=== PATIENT | female | born 1955 | race African-American/Black ===

== ENCOUNTER 2021-06-08 13:52 | Emergency (ER) | payer MEDICARE, SELFPAY ==
[2021-06-08] VITALS (7 sets, daily range): BP systolic 143–188; BP diastolic 73–94; PULSE 75–105; RESP 16–22; O2SAT 97–100; BMI 31.6
--- NOTE | 2021-06-08 14:25 | ECG_ITS ---
[facility] Test Date: 2021-06-08 Pat Name: ERLIN HOLLIDAY Department: Room: Gender: Female [employer]: : 1955 Requested By: Denis Gonzalez Order Number: [id number] Francisco MD: Monica Yi M.D. Measurements Intervals [place] Rate: 80 P: 42 NC: 150 QRS: -26 QRSD: 94 T: -32 QT: 372 QTc: 431 Interpretive Statements SINUS RHYTHM POSSIBLE LEFT ATRIAL ENLARGEMENT [-0.1mV P-WAVE IN V1/V2] POSSIBLE LEFT VENTRICULAR HYPERTROPHY [VOLTAGE CRITERIA PLUS LAE OR QRS WIDENING] POSSIBLE SEPTAL MYOCARDIAL INFARCTION , OF INDETERMINATE AGE [30 ms Q WAVE IN V1/V2] No previous ECG available for comparison Heavy baseline artifact, need to repeat Electronically Signed On 06-09-2021 13:58:05 BLADE GRINDER by Monica Yi M.D. [id number]
--- NOTE | 2021-06-08 14:25 | XR_ITS ---
WS: [id number] Exam: XR chest 1V portable [id number] Date/Time of Exam: 06/08/2021 2:28 PM Reason For Exam: syncope No priors. The lungs are fully expanded and clear. Normal cardiomediastinal silhouette and regional bony element s. No pleural effusions. XR/XR chest 1V portable [id number] IMPRESSION: 1. No acute cardiopulmonary finding.
--- NOTE | 2021-06-08 14:25 | CT_ITS ---
WS: [id number] CT HEAD NONCONTRAST HISTORY: syncope TECHNIQUE: Contiguous axial imaging performed through the brain in 2.5 mm imaging. Bone and soft tiss ue windows. Sagittal and coronal reformats reviewed. All CT scans at [facility] use at least one of these dose optimization techniques: automated exposure control; mA and/or kV adjustment per pa tient size (includes targeted exams where dose is matched to clinical indication); or iterative recon struction. DLP: 936.93 mGy.cm COMPARISON: None available. No acute intracranial hemorrhage, midline shift or mass effect. Mild atrophy and mild chronic microvascular ischemic disease. No sulcal edema. Ventricles: Normal size with no hydrocephalus. Paranasal sinuses: As visualized are clear. Mastoid air cells: Well pneumatized. Calvarium and scalp: Skull is intact with no soft tissue edema or swelling. CT/CT head wo con* [id number] IMPRESSION: 1. No acute intracranial hemorrhage or edema. 2. Mild cerebral atrophy.
--- NOTE | 2021-06-08 14:28 | PC.NURSE ---
Patient placed on continuous bedside cardiac, BP and O2 monitor.
[2021-06-08 14:36] LABS: Basophils % 0.8 %; Hematocrit 33.7 % (37.0-47.0); Hemoglobin 12.1 g/dL (11.5-15.3); Lymphocytes # 0.8 10^3/uL (0.8-4.8); Lymphocytes % 19.1 %; Mean Corpuscular HGB Conc 35.9 g/dL (30.0-36.0); Mean Corpuscular Hemoglobin 37.9 pg (28.0-34.0); Mean Corpuscular Volume 105.6 fl (81-99); Mean Platelet Volume 10.7 fL (7.4-10.4); Monocytes # 0.3 10^3/uL (0.2-0.9); Monocytes % 6.4 %; Neutrophils # 2.84 10^3/uL (1.8-7.7); Neutrophils % 72.4 %; Nucleated Red Blood Cells % 0 %; Platelet Count 142 10^3/cmm (130-400); Red Blood Count 3.19 10^6/uL (4.1-5.3); White Blood Count 3.9 10^3/uL (4.0-10.0)
[2021-06-08 15:00] LABS: D Dimer 8.51 ug/mIFEU (0-0.59)
[2021-06-08] MEDS: sodium chloride 0.9% 500 ML 999 ML IV (15:01)
[2021-06-08 15:04] LABS: Troponin(5th) Baseline 29 ng/L (0-10)
[2021-06-08 15:09] LABS: Blood Urea Nitrogen 15 mg/dL (8-23); Calcium 9.4 mg/dL (8.5-10.5); Carbon Dioxide 26 mmol/L (22-29); Chloride 104 mmol/L (98-107); Creatine Phosphokinase 68 U/L (26-192); Glomerular Filtration Rate 60.1 mL/min (90-130); Glucose 113 mg/dL (65-115); Magnesium 1.6 mg/dL (1.7-2.3); NT Pro B Type Natriuretic Pept 122 pg/mL (0-125); Osmolality Calculated 300 mOsm/kg (285-295); Sodium 144 mmol/L (136-145)
--- NOTE | 2021-06-08 15:13 | W.ED.SYNCOPE ---
HPI - Syncope General: Chief Complaint: Syncope Stated Complaint: SYNCOPE Time Seen by Provider: 06/08/21 13:56 History of Present Illness: MD complaint: loss of consciousness Onset (ago): hour(s) Description of event: post-event confusion (brief) Prodromal symptoms: diaphoresis Context: at rest Associated symptoms: Reports lightheadedness; Deny chest pain, fever(s), headache(s), nausea or short of breath Treatments prior to arrival: none Review of Systems Const: Denies: fever(s) Eyes: Denies: blurry vision Card: Reports: lightheadedness; Denies: chest pain Resp: Denies: dyspnea or productive cough GI: Denies: nausea or vomiting Neuro: Denies: headache(s) Physical Exam Const: COMMON NORMALS: no acute distress, patient oriented x3 and alert GENERAL APPEARANCE: cooperative Chest: COMMONS NORMALS: normal inspection of the chest Resp: COMMON NORMALS: normal respiratory effort, No use of accessory muscles and clear to auscultation bilaterally AUSCULTATION: clear to auscultation bilaterally Cardio: COMMON NORMALS: regular rate and regular rhythm RATE: regular rate RHYTHM: regular rhythm GI: COMMON NORMALS: Normal to inspection, nondistended, normoactive bowel sounds present and Soft to palpation PALPATION: Yes Soft to palpation Neuro: COMMON NORMALS: patient oriented x3 SENSORIUM/ORIENTATION: Yes alert MOTOR EXAM: 5/5 motor strength present throughout Course Vital Signs: Vital signs: Vital Signs Pulse Rate 89 06/08/21 18:49 Respiratory Rate 16 06/08/21 18:49 Blood Pressure 143/94 06/08/21 18:49 Pulse Oximetry 100 06/08/21 18:49 MDM - Syncope MDM Narrative: Medical decision making narrative: 65-year-old female complains of syncope at home. She is essentially asymptomatic now. There was no overt seizure activity.No chest pain before or after. She is not short of breath. She is essentially asymptomatic. She has had these problems before. Her white blood cell count is 3.9. Creatinine is 1.1. Her first troponin was mildly elevated, but did not change significantly at 2 hours. Her EKG showed sinus rhythm with occasional PVCs. No definite significant ST changes. Her axis is left. Her D-dimer was significantly elevated at 8.5. CTA of the chest shows no large pulmonary emboli although quality of the study is not enough to determine peripheral PEs. She is not hypoxic, nontachycardic. CTA did show some groundglass opacities. COVID PCR is pending. Lab Data: Labs: Lab Results 06/08/21 06/08/21 06/08/21 14:10 14:10 14:10 WBC 3.9 10^3/uL L 10^ 3/uL (4.0-10.0) RBC 3.19 10^6/uL L 10 ^6/uL (4.1-5.3) Hgb 12.1 g/dL g/dL (11.5-15.3) Hct 33.7 % L % (37.0-47.0) MCV 105.6 fl H fl (81-99) MCH 37.9 pg H pg (28.0-34.0) MCHC 35.9 g/dL g/dL (30.0-36.0) RDW 14.0 % % (12.1-15.1) Plt Count 142 10^3/cmm 10^3 /cmm (130-400) MPV 10.7 fL H fL (7.4-10.4) Neut % (Auto) 72.4 % % Lymph % (Auto) 19.1 % % [place] % (Auto) 6.4 % % Eos % (Auto) 1.0 % % Baso % (Auto) 0.8 % % Neut # (Auto) 2.84 10^3/uL 10^3 /uL (1.8-7.7) Lymph # (Auto) 0.8 10^3/uL 10^3/ uL (0.8-4.8) [place] # (Auto) 0.3 10^3/uL 10^3/ uL (0.2-0.9) Eos # (Auto) 0.0 10^3/uL 10^3/ uL (0.0-0.8) Baso # (Auto) 0.0 10^3/uL 10^3/ uL (0.0-0.1) Nucleated RBC % (a uto) 0 % % Nucleated RBCs # 0.0 /100WBC /100W BC D-Dimer 8.51 ug/mIFEU H u g/mIFEU (0-0.59) Sodium 144 mmol/L mmol/L (136-145) Potassium 4.0 mmol/L mmol/L (3.5-5.1) Chloride 104 mmol/L mmol/L (98-107) Carbon Dioxide 26 mmol/L mmol/L (22-29) Anion Gap 18.0 (5-19) BUN 15 mg/dL mg/dL (8-23) Creatinine 1.1 mg/dL H mg/dL (0.5-0.9) GFR Calculation 60.1 mL/min L mL/ min (90-130) Glucose 113 mg/dL mg/dL (65-115) POC Glucose Calculated Osmolal ity 300 mOsm/kg H mOs m/kg (285-295) Calcium 9.4 mg/dL mg/dL (8.5-10.5) Magnesium 1.6 mg/dL L mg/dL (1.7-2.3) Creatine Kinase 68 U/L U/L (26-192) Troponin T Baselin e Troponin T 120 Min [place] Delta Troponin T NT-Pro-B Natriuret Pep 122 pg/mL pg/mL (0-125) Coronavirus 229E ( PCR) SARS-CoV-2 (PCR) 06/08/21 06/08/21 06/08/21 14:10 14:17 16:05 WBC RBC Hgb Hct MCV MCH MCHC RDW Plt Count MPV Neut % (Auto) Lymph % (Auto) [place] % (Auto) Eos % (Auto) Baso % (Auto) Neut # (Auto) Lymph # (Auto) [place] # (Auto) Eos # (Auto) Baso # (Auto) Nucleated RBC % (a uto) Nucleated RBCs # D-Dimer Sodium Potassium Chloride Carbon Dioxide Anion Gap BUN Creatinine GFR Calculation Glucose POC Glucose 114 mg/dL H mg/dL (70-110) Calculated Osmolal ity Calcium Magnesium Creatine Kinase Troponin T Baselin e 29 ng/L H ng/L (0-10) Troponin T 120 Min [place] Delta Troponin T NT-Pro-B Natriuret Pep Coronavirus 229E ( PCR) Not detected (NOT DETECT) SARS-CoV-2 (PCR) Not detected (NOT DETECT) 06/08/21 06/08/21 16:29 18:59 WBC RBC Hgb Hct MCV MCH MCHC RDW Plt Count MPV Neut % (Auto) Lymph % (Auto) [place] % (Auto) Eos % (Auto) Baso % (Auto) Neut # (Auto) Lymph # (Auto) [place] # (Auto) Eos # (Auto) Baso # (Auto) Nucleated RBC % (a uto) Nucleated RBCs # D-Dimer Sodium Potassium Chloride Carbon Dioxide Anion Gap BUN Creatinine GFR Calculation Glucose POC Glucose 107 mg/dL mg/dL (70-110) Calculated Osmolal ity Calcium Magnesium Creatine Kinase Troponin T Baselin e Troponin T 120 Min [place] 27.83 ng/L H ng/L (0-10) Delta Troponin T -1.17 ABS# L ABS# (0-10) NT-Pro-B Natriuret Pep Coronavirus 229E ( PCR) SARS-CoV-2 (PCR) Discharge Plan Discharge Patient Disposition: Home Clinical Impression: Syncope Qualifiers: Syncope type: unspecified Qualified Code(s): R55 - Syncope and collapse Condition: Stable Prescriptions: No Action promethazine 25 mg Tablet 50 mg PO Q4H PRN (Reason: Nausea And Vomiting) RF: 0 ProAir HFA 90 mcg/actuation Hfa Aerosol Inhaler 2 puff INHALATION QID PRN (Reason: Shortness Of Breath) RF: 0 olmesartan-hydrochlorothiazide [Benicar HCT] 40-12.5 mg Tablet 1 tab PO DAILY RF: 0 turmeric 400 mg Capsule 400 mg PO DAILY RF: 0 CoQ-10 1 cap PO DAILY RF: 0 Fish Oil 1 cap PO DAILY RF: 0 Vitamin D3 1 cap PO DAILY RF: 0 zinc 1 cap PO DAILY RF: 0 Discharge Orders: Discharge ED (Routine); Ordered 06/08/21 Ordered By: Denis Hyde Patient Instructions: Syncope (ED) Activity Restrictions/Additional Instructions: Return for repeated episodes of syncope or passing out, chest discomfort, shortness of breath, fever, mental status changes, lethargy or any other concerning symptoms. Check your blood pressure twice daily, and report numbers to your physician. You were tested for COVID-19 while here, as some of your laboratory findings were suggestive of this being a possibility. If your test is positive, you will get a call, and you will be offered the opportunity to return for monoclonal antibody infusion. Coding Level of Care Code ED Windows Mobile Developer for Cesar Fwd Exam Detailed
--- NOTE | 2021-06-08 15:14 | CT_ITS ---
WS: [id number] CT CHEST ANGIOGRAPHY WITH REFORMATS HISTORY: syncope TECHNIQUE: Contiguous axial images are obtained through the chest during arterial injection of intrav enous contrast. Images are reconstructed to evaluate the pulmonary arteries. MIP imaging also reviewe d. All CT scans at [facility] use at least one of these dose optimization techniques: automat ed exposure control; mA and/or kV adjustment per patient size (includes targeted exams where dose is matched to clinical indication); or iterative reconstruction. CONTRAST: Omnipaque 350; 95 mL IV. DLP: 540.09 mGy.cm COMPARISON: None available. Very Limited opacification of the pulmonary arteries. There is streak artifact throughout the arterie s. There is extensive beam hardening artifact from the patient's body habitus. No large pulmonary emb anisa. Beyond that cannot exclude small pulmonary emboli. Pulmonary artery size is equal to the aorta. There is no RIGHT heart strain. Mild enlargement of the LEFT ventricle. Mild atherosclerosis of the t horacic aorta. There are a few very subtle areas of groundglass attenuation in the lower lung chavez bilaterally. No dense consolidation. No pleural effusion. No enlarged lymph nodes. Severe hepatic steatosis throughout the liver. Liver is enlarged. CT/CT angio chest PE protcl [id number] IMPRESSION: 1. Suboptimal opacification of pulmonary arteries. Predominantly due to poor c ontrast injection and patient's body habitus. There is no large obstructing emb anisa. Small emboli cannot be excluded. 2. Very minimal groundglass attenuation consistent with pneumonitis at the iris g bases. 3. Moderately enlarged LEFT heart chambers. 4. Marked hepatic steatosis and hepatomegaly.
[2021-06-08] MEDS: iohexol 350 mg/mL 100 mL Btl IV (15:38)
[2021-06-08 16:39] LABS: Glucose Point of Care 114 mg/dL (70-110)
[2021-06-08 17:42] LABS: Troponin 5 2HR 27.83 ng/L (0-10)
[2021-06-08 17:45] LABS: Troponin 5 2HR Delta -1.17 ABS# (0-10)
--- NOTE | 2021-06-08 17:49 | PC.NURSE ---
Pt endorsing dizziness intermittently. Pt given instruction to stay in bed and if hse needs to get up to push her call button. Pt denies pain.
--- NOTE | 2021-06-08 19:00 | PC.NURSE ---
Patient having tremors during discharge assessment. Dr. Hyde notified and came to reassess patient.
[2021-06-08 19:13] LABS: Adenovirus Not Detected (NOT DETECT); Chlamydia Pneumoniae Not Detected (NOT DETECT); Coronavirus 229E,HKU1,NL63,OC4 Not Detected (NOT DETECT); Human Metapneumovirus Not Detected (NOT DETECT); Human Rhinovirus/Enterovirus Not Detected (NOT DETECT); Influenza A Not Detected (NOT DETECT); Influenza A H1 Not Detected (NOT DETECT); Influenza A H1-2009 Not Detected (NOT DETECT); Influenza A H3 Not Detected (NOT DETECT); Influenza B Not Detected (NOT DETECT); Mycoplasma Pneumoniae Not Detected (NOT DETECT); Parainfluenza Virus Type 1 Not Detected (NOT DETECT); Parainfluenza Virus Type 2 Not Detected (NOT DETECT); Parainfluenza Virus Type 3 Not Detected (NOT DETECT); Parainfluenza Virus Type 4 Not Detected (NOT DETECT); Respiratory Syncytial Virus A Not Detected (NOT DETECT); Respiratory Syncytial Virus B Not Detected (NOT DETECT); SARS-COV-2 Not Detected (NOT DETECT)
[2021-06-08 19:15] LABS: Glucose Point of Care 107 mg/dL (70-110)
--- NOTE | 2021-06-08 20:25 | ECG_ITS ---
[facility] Test Date: 2021-06-08 Pat Name: ERLIN HOLLIDAY Department: Room: Gender: Female [employer] Installer: : 1955 Requested By: Denis Gonzalez Order Number: [id number] Francisco MD: Ruthie Mccloud M.D. Measurements Intervals [place] Rate: 78 P: 57 FL: 139 QRS: -20 QRSD: 95 T: -14 QT: 375 QTc: 429 Interpretive Statements SINUS RHYTHM WITH OCCASIONAL VENTRICULAR PREMATURE COMPLEXES POSSIBLE LEFT ATRIAL ENLARGEMENT [-0.1mV P-WAVE IN V1/V2] POSSIBLE LEFT VENTRICULAR HYPERTROPHY [VOLTAGE CRITERIA PLUS LAE OR QRS WIDENING] POSSIBLE SEPTAL MYOCARDIAL INFARCTION , OF INDETERMINATE AGE [30 ms Q WAVE IN V1/V2] No previous ECG available for comparison Electronically Signed On 06-10-2021 19:30:26 MANAGER OUTPATIENT by Ruthie Mccloud M.D. [email or web address]
== END 2021-06-08 19:13 | disposition home or self-care (01) ==
PROVIDERS: Emergency Provider Emergency Medicine
DX: R55 Syncope and collapse (principal)
CPT/HCPCS: 36415; 36416; 70450; 71045; 71275; 80048; 82550; 82962; 83735; 83880; 84484; 85025; 85378; 87635; 93005; 99284; J7040; Q9967